=== PATIENT | female | born 1995 | race Caucasian/White ===

== ENCOUNTER 2016-06-10 20:18 | Emergency (ER) | payer BC, OTHER ==
[2016-06-10 21:06] VITALS: BP 147/80
[2016-06-10] MEDS ORDERED: Amoxicillin/Clavulanate TAB* 875 MG PO ONE (21:50)
--- NOTE | 2016-06-10 21:59 | UC ---
Throat Pain/Nasal [place] HPI - HPI Summary HPI Summary: TWO DAYS OF LEFT SIDED SINUS PRESSURE LEFT SIDED FACIAL PRESSURE AND LEFT EAR PAIN. SORE THROAT. NO FEVER. - History of Current Complaint Chief Complaint: UCGeneralIllness Stated Complaint: SINUS,EAR PAIN Time Seen by Provider: 06/10/16 21:20 Hx Obtained From: Patient, Family/Compass Operator Hx Last Menstrual Period: 05/26/09 Onset/Duration: Gradual Onset, Lasting Days, Still Present Severity: Moderate Cough: Nonproductive Associated Signs & Symptoms: Positive: Hoarseness, Sinus Discomfort, Nasal Discharge - Epiglottits Risk Factors Epiglottis Risk Factors: Negative - Allergies/Home Medications Allergies/Adverse Reactions: Allergies Allergy/AdvReac Type Severity Reaction Status Date / Time No Known Allergies Allergy Verified 06/10/16 20:59 Home Medications: Home Medications Naproxen Sodium-Diphenhydramin [Aleve PM 220-25 mg] 06/10/16 [History] Norgestimate-Eth Estradiol(NF) [Ortho Tri-Cyclen (NF)] 06/10/16 [History] [id number]-[id number]-Cd [Mucinex Fast-Max Cold & S 5-325-200 mg] [History] PMH/Surg Hx/FS Hx/Imm Hx Previously Healthy: Yes - Surgical History Surgical History: None - Family History Known Family History: Negative: Respiratory Disease - Social History Occupation: Student Lives: With Family Alcohol Use: None Substance Use Type: None Smoking Status (MU): Never Smoked Tobacco Review of Systems Constitutional: Negative Skin: Negative Eyes: Negative ENT: Sore Throat, Ear Ache, Nasal Discharge Respiratory: Cough Cardiovascular: Negative Gastrointestinal: Negative Genitourinary: Negative Motor: Negative Neurovascular: Negative Musculoskeletal: Negative Neurological: Negative Psychological: Negative All Other Systems Reviewed And Are Negative: Yes Physical Exam Triage Information Reviewed: Yes Appearance: Well-Appearing, No Pain Distress, Well-Nourished Vital Signs: Initial Vital Signs Temp 98.6 F 06/10/16 21:00 Pulse 62 06/10/16 21:00 Resp 18 06/10/16 21:00 BP 147/80 06/10/16 21:00 Pulse Ox 99 06/10/16 21:00 Vital Signs Reviewed: Yes Eye Exam: Normal Eyes: Positive: Conjunctiva Clear ENT: Positive: Pharynx normal, TM bulging, TM dull, TM red - LEFT SIDE, Other: - LEFT EAC EDEMATOUS ERRETHEMATOUS Dental Exam: Normal Neck exam: Normal Neck: Positive: Supple, Nontender, No Lymphadenopathy Respiratory Exam: Other - COUGH Respiratory: Positive: Chest non-tender, Lungs clear, Normal breath sounds, No respiratory distress, No accessory muscle use Cardiovascular Exam: Normal Cardiovascular: Positive: RRR, No Murmur, Pulses Normal Abdominal Exam: Normal Musculoskeletal Exam: Normal Musculoskeletal: Positive: Strength Intact, ROM Intact Neurological Exam: Normal Psychological Exam: Normal Psychological: Positive: Normal Response To Family Skin Exam: Normal Throat Pain/Nasal Course/Dx - Differential Dx/Diagnosis Differential Diagnosis/HQI/PQRI: Otitis Media, Pharyngitis, Sinusitis, Tonsillitis, URI Provider Diagnoses: LEFT OTITIS MEDIA/OTITIS EXTERNA; SINUSITIS Discharge - Discharge Plan Condition: Stable Disposition: HOME Prescriptions: Amoxicillin/Clavulanate TAB* [Augmentin TAB 875*] 875 mg PO BID #20 tab Ciproflox/Dexameth OTIC.SUSP* [Ciprodex OTIC.SUSP*] 4 drop .SEE ORDER TID #1 btl Patient Education Materials: Sinusitis (ED), Otitis Externa (ED), Otitis Media (ED) Referrals: [facility] [place] [facility] REFERRAL [Outside] [facility] @ [Outside] No Primary Care Phys,NOPCP [Primary Care Provider] -
== END 2016-06-10 22:00 | disposition home or self-care (01) ==
LOC: UCEAST 20:18
DX: J32.9 Chronic sinusitis, unspecified (principal); H66.92 Otitis media, unspecified, left ear; H60.8X2 Other otitis externa, left ear
CPT/HCPCS: 99202; A9270-GY; G0463